=== PATIENT | male | born 1950 | race African-American/Black ===

== ENCOUNTER 2017-11-11 14:27 | Observation (INO) | payer MEDICARE ==
--- NOTE | 2017-11-11 16:22 | HP ---
PRIMARY CARE PHYSICIAN: Dr. Joshua Dean. REASON FOR ADMISSION: Transfer from [facility] for chest pain, syncopal episode. HISTORY OF PRESENT ILLNESS: A 67-year-old -Russian male who has underlying history of hypert ension who initially presented to [facility] for evaluation of palpitation, near syncope and chest pain. 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 At that poin t, he was having substernal discomfort. He describes as palpitations. He was feeling heaviness in s ubsternal area. He was feeling skipped beats. He was feeling that he was about to pass out, but he did not have any complete loss of consciousness. He was having intermittent this type of feeling and that is why he stopped driving and subsequently he parked his truck and with help, he was brought to [facility]. At [facility], patient was evaluated with routine blood test. His CBC, BMP, and cardiac enzymes were normal. His TSH was also normal. Electrocardiogram also sh owed some PVCs with normal pulse 60 and normal rhythm. Patient was given aspirin and subsequently he was transferred to our hospital for higher level of care. The patient denies any cardiac testing do ne. He denies any orthopnea, PND or leg swelling, but he does feels intermittent symptoms for last 2 -3 weeks. The patient is a smoker. Patient also drinks alcohol. The patient denies any lower extre mity edema or calf tenderness. He denies any relation of chest pain with food, respiration or activi ty. He denies any pleurisy. He denies any cough, fever, or chills. He denies any UTI symptoms. He denies any constipation, diarrhea, melena or hematochezia. REVIEW OF SYSTEMS: The following complete review of systems was negative, unless otherwise mentioned in the HPI or below: Constitutional: Weight loss or gain, ability to conduct usual activities. Skin: Rash, itching. Eyes: Double vision, pain. ENT/Mouth: Nose bleeding, neck stiffness, pain, tenderness. Cardiovascular: Palpitations, dyspnea on exertion, orthopnea. Respiratory: Shortness of breath, wheezing, cough, hemoptysis, fever or night sweats. Gastrointestinal: Poor appetite, abdominal pain, heartburn, nausea, vomiting, constipation, or diarr hea. Genitourinary: Urgency, frequency, dysuria, nocturia. Musculoskeletal: Pain, swelling. Neurologic/Psychiatric: Anxiety, depression. Allergy/Immunologic: Skin rash, bleeding tendency. Please see my HPI for pertinent positive and negative. All other review of systems reviewed and nega tive except as mentioned in the HPI. ALLERGIES: LATEX CLOTHES and SHELLFISH. CURRENT HOME MEDICATIONS: Lisinopril 20 mg p.o. daily, Coreg 25 mg p.o. twice daily. EMERGENCY ROOM COURSE: Patient is given aspirin at [facility]. PAST MEDICAL HISTORY: Hypertension, on antihypertensive medication. Patient reports that he has his tory of infective endocarditis and he was treated at [facility] with antibiotic. PAST SURGICAL HISTORY: Left knee arthroscopic surgery, right hand surgery for tendon repair. SOCIAL HISTORY: Patient working as a heavy truck technician. He smokes about 1 pack per day. He also drinks alcohol 5 beers every day basis. He denies any recreational drugs. FAMILY HISTORY: No strong family history of premature coronary artery disease, stroke or cancer. PAST PSYCHIATRIC HISTORY: Anxiety and depression, but not on any medication. PHYSICAL EXAMINATION: VITAL SIGNS: Currently, blood pressure 122/81, pulse 59, respiratory rate 16, temperature 98.9, satu ration 100% on room air, weight 77.1 kilograms. GENERAL: The patient is currently alert, awake, no obvious acute distress. HEAD: Normocephalic, atraumatic. EYES: Pupils round, reactive to light. Extraocular muscle intact. ENT: Oropharynx within normal limits. Moist mucous membranes. No oral lesion, no pharyngeal erythe ma, no exudate. NECK: Supple, no JVD, no thyromegaly, no carotid bruit, no jugular venous distention. LUNGS: Clear to auscultation without any rhonchi or rales. CARDIAC: S1, S2 regular. No murmur, no gallop, no rub. ABDOMEN: Soft, bowel sounds present, nontender, nondistended. No organomegaly, no mass, no suprapub ic tenderness. No epigastric tenderness. LUNGS: Clear to auscultation without any rhonchi or rales, no accessory muscles of respiration in us e. EXTREMITIES: Upper extremity passive movements of all joints are normal. Lower extremity passive mo vements of all joints are normal. SKIN: No skin rash. PSYCHIATRIC: Normal affect. NEUROLOGIC: Nonfocal examination. The patient moves all 4 limbs. Speech normal. HEMATOLOGICAL: No lymphadenopathy. IMAGING DATA AND SIGNIFICANT LABORATORY DATA: school lunch monitor showing normal sinus rhythm. EKG sh owing normal sinus rhythm, occasional PVC. CBC: WBC 5.4, hemoglobin 14.8, platelet 218. BMP; sodiu m 137, potassium 3.9, chloride 104, carbon dioxide 23, anion gap 14, BUN 11, creatinine 1.04, glucose 115, calcium 9.7, magnesium 2.1. LFT: AST 30, ALT 39, alkaline phosphatase 76, albumin 4.2, CK 182 , CK-MB 2.5, troponin I less than 0.010. TSH 1.03. Chest x-ray based on my review, no acute cardiopulmonary process. ASSESSMENT AND PLAN/IMPRESSION: 1. Chest pain, palpitation, near syncope. The patient's EKG is normal. The patient has risk factor s with hypertension, smoking, and age. Patient's cardiac enzyme is negative. TSH is normal. At thi s point, we will keep in the hospital for 24 hours and we will monitor on telemetry floor for any kin d of arrhythmia. The patient will need stress testing for diagnostic reason. We will keep him n.p.o . after midnight. We will check lipid profile for risk stratification. Meanwhile, we will continue with aspirin 325 mg p.o. daily. Healthy lifestyle measures discussed with the patient. We will also give him Pepcid 20 mg p.o. b.i.d. 2. We will do serial cardiac enzymes x2 to rule out acute coronary syndrome. As we are planning to do stress test tomorrow, that is why we will hold on his Coreg. We will continue with lisinopril 20 mg p.o. daily. 3. Hypertension. As mentioned above, we will continue with lisinopril 20 mg p.o. daily if blood pre ssure permits. We are going to hold Coreg because of stress testing tomorrow. 4. Tobacco abuse disorder. Smoking cessation counseling given. Healthy lifestyle measures discusse d with the patient. We will offer nicotine patch if needed. 5. Alcohol abuse. The patient is given counseling to avoid alcohol product. We will also check uri ne drug screen. 6. Anxiety and depression. Apparently, the patient is lot worried about his son who is in mcc at [email or web address]. The patient is given reassurance. 7. Deep venous thrombosis prophylaxis not needed because we are expecting discharge in 24 hours. 8. Gastrointestinal prophylaxis, Pepcid 20 mg p.o. b.i.d. 9. Code status: The patient is FULL CODE. Most likely, the patient will be discharged home tomorro w morning.
[2017-11-11] MEDS ORDERED: Ondansetron HCl/PF 4 MG/2 ML Vial IVP PRN ×2 (16:52→16:59)
[2017-11-11] MEDS ORDERED: HYDROcodone/Acetaminophen 5/325 mg Tablet PO PRN ×3 (16:52→16:59)
[2017-11-11] MEDS ORDERED: Acetaminophen 325 MG TAB PO PRN ×2 (16:52→16:59)
[2017-11-11] MEDS ORDERED: Ondansetron ODT 4 MG TAB SL PRN (16:52)
[2017-11-11] MEDS ORDERED: Senokot 8.6 MG TAB PO PRN (16:59)
[2017-11-11] MEDS ORDERED: Diabetic Tussin 200 MG/10 ML UDCUP PO PRN (16:59)
[2017-11-11] MEDS ORDERED: Milk Of Magnesia 30 ML UDCUP PO PRN (16:59)
[2017-11-11] MEDS ORDERED: Mag-Al 1200 mg/1200 mg/30 ML UDCUP PO PRN (16:59)
[2017-11-11] MEDS ORDERED: Nitroglycerin 0.4 MG TAB (25 Tab Bottle) SL PRN (16:59)
[2017-11-11] MEDS ORDERED: Loratadine 10 MG TAB PO PRN (16:59)
[2017-11-11] MEDS ORDERED: Eucerin (Mineral Oil/Petrolatum,White) 30 gm Jar TOP PRN (16:59)
[2017-11-11] MEDS ORDERED: Loperamide HCl 2 MG CAP PO PRN (16:59)
[2017-11-11] MEDS ORDERED: Sodium Chloride 0.65% Nasal 44 ML BOT EA NARE PRN (16:59)
[2017-11-11] MEDS ORDERED: cloNIDine 0.1 MG TAB PO PRN (16:59)
[2017-11-11] MEDS ORDERED: Chloraseptic Spray 180 ml Bottle PO PRN (16:59)
[2017-11-11] MEDS ORDERED: Zolpidem Tartrate 5 MG TAB PO PRN (16:59)
[2017-11-11] MEDS ORDERED: Artificial Tears 18 DROP/0.9 ML EA EYE PRN (16:59)
[2017-11-11] MEDS ORDERED: Ondansetron ODT 4 MG TAB PO PRN (16:59)
[2017-11-11 17:53] VITALS: BMI 22.8
[2017-11-11 19:28] LABS: CKMB 2.5 ng/mL (0-6.6); Troponin I Less than 0.010 ng/mL (< 0.028)
[2017-11-11] MEDS: Famotidine 20 MG TAB PO SCH (19:48)
[2017-11-11 21:18] LABS: CKMB 2.4 ng/mL (0-6.6); Troponin I Less than 0.010 ng/mL (< 0.028)
[2017-11-12 05:33] LABS: #Eosinphils 0.2 thou/uL (0.0-0.7); #Lymphocytes 1.6 thou/uL (1.20-3.40); #Monocytes 0.5 thou/uL (0.11-0.59); #Neutrophils 2.3 thou/uL (1.40-6.50); %Eosinophils 4.3 % (0.0-10.0); %Lymphocytes 35.2 % (21.0-51.0); %Monocytes 10.2 % (0.0-10.0); %Neutrophils 49.3 % (42.0-75.0); Hemoglobin 14.3 g/dL (14.0-18.0); Mean Corpuscular HGB CONC 33.9 g/dL (32.0-36.0); Mean Corpuscular Hemoglobin 29.9 pg (27.0-31.0); Mean Corpuscular Volume 88.4 fL (78.0-98.0); Mean Platelet Volume 6.9 fL (7.4-10.4); Platelet Count 193 thou/uL (130-400); RBC Distribution Width 12.7 % (11.5-14.5); Red Blood Cell (RBC) Count 4.79 mill/uL (4.70-6.10); White Blood Cell (WBC) Count 4.6 thou/uL (4.8-10.8)
[2017-11-12 05:50] LABS: Anion Gap 12 mmol/L (10-20); BUN (Urea Nitrogen) 12 mg/dL (8.4-25.7); Calc. Creatinine Clearance 83 mL/min (70-130); Calcium 9.3 mg/dL (7.8-10.44); Carbon Dioxide 26 mmol/L (23-31); Cardiac Risk 2.7 (Less than 4.5); Chloride 102 mmol/L (98-107); Cholesterol 265 mg/dl (< 200 Desired); Estimated GFR-MDRD Greater than 90; Glucose 81 mg/dL (80-115); HDL Cholesterol 99 mg/dL (>60 Neg Risk); LDL Cholesterol, Calculated 146 mg/dL; Potassium 4.3 mmol/L (3.5-5.1); Sodium 136 mmol/L (136-145); Triglycerides 101 mg/dL (Less than 150)
[2017-11-12 06:21] LABS: Amphetamine Not Detected (NotDetected); Barbiturates Screen Not Detected (NotDetected); Benzodiazepine Screen Not Detected (NotDetected); Cocaine Metabolite Screen Not Detected (NotDetected); Medtox Reader # READER 4; Methadone Not Detected (NotDetected); Methamphetamine Not Detected (NotDetected); Opiate Screen Not Detected (NotDetected); Oxycodone Screen Not Detected (NotDetected); Phencyclidine (PCP) Not Detected (NotDetected); THC/Cannabinoid Screen Not Detected (NotDetected); Tricyclic Screen Not Detected (NotDetected)
[2017-11-12 06:22] LABS: Medtox Control Line Valid? VALID (VALID)
[2017-11-12] MEDS: Famotidine 20 MG TAB PO SCH (08:43)
[2017-11-12] MEDS ORDERED: Lisinopril 20 MG TAB PO SCH (09:00)
[2017-11-12] MEDS ORDERED: Aspirin 325 MG TAB PO SCH (09:00)
--- NOTE | 2017-11-12 10:14 | DIS ---
DATE OF ADMISSION: 11/11/2017 DATE OF DISCHARGE: 11/12/2017 PRIMARY CARE PHYSICIAN: Dr. Charles Dean. DISCHARGE DISPOSITION: Home. PRIMARY DISCHARGE DIAGNOSES: Chest pain, ruled out acute coronary syndrome, suspected from gastroesophageal reflux disease. SECONDARY DISCHARGE DIAGNOSES: Tobacco abuse disorder, hypertension, dyslipidemia, alcohol abuse, anxiety and depression. PRIMARY PROCEDURES AND OPERATIONS: None. RADIOLOGICAL INVESTIGATION: Patient had chest x-ray at [facility] which was normal. Stress test is ordered and result is pending. SIGNIFICANT LABORATORY DATA: WBC 4.6, hemoglobin 14.3, platelet 193. Sodium 136, creatinine 0.91. Cardiac enzymes negative x3. LDL 146. Urine drug screen negative. DISCHARGE MEDICATIONS: Coreg 25 mg p.o. b.i.d., lisinopril 20 mg p.o. daily, Ecotrin 81 mg p.o. daily, Pepcid 20 mg p.o. b.i.d., lovastatin 10 mg p.o. at bedtime. CONTRAINDICATIONS: None. CODE STATUS: FULL CODE. INPATIENT CONSULTANTS: None. ALLERGIES: LATEX, SHELLFISH. DISCHARGE PLAN: Post hospital, the patient is instructed to follow up with primary care physician in 1 week. HOSPITAL COURSE: The patient is a 67-year-old male who was admitted by me yesterday. Please see my HPI for further details. He presented to [facility] with a complaint of substernal chest discomfort, palpitation, dizziness. His description was pretty much atypical. He has some risk factors for coronary artery disease and that is why he was transferred to our hospital. We kept him in hospital for observation and we did serial cardiac enzymes and that were negative. His telemetry remained unremarkable. He was keep complaining of skipped beat, but we did not see any abnormality on monitor. His chest x-ray was normal. We did stress test during this admission and result is pending by the time of dictation. Patient will continue all his previous medication upon discharge. If stress test is negative, then we will consider discharging him home. PHYSICAL EXAMINATION: The patient is seen and examined at bedside today. VITAL SIGNS: Currently, temperature 98.2, pulse 56, respiratory rate 14, saturation 96% on room air, blood pressure 134/67, weight 159 pounds. GENERAL: The patient is currently alert, awake, no obvious acute distress. HEAD: Normocephalic, atraumatic. EYES: Pupils round, reactive to light. Extraocular muscle intact. ENT: Oropharynx within normal limits. Moist mucous membranes. NECK: Supple, no JVD, no thyromegaly, no carotid bruit. LUNGS: Clear to auscultation. CARDIAC: S1, S2 regular. No murmur. ABDOMEN: Soft and benign. EXTREMITIES: No edema. NEUROLOGIC: Nonfocal examination. FOLLOWUP: This patient should follow up with primary care physician to adjust his blood pressure medication. stress test is normal MTDD
[2017-11-12 15:30] VITALS: BP 151/65; TEMP 97.8
--- NOTE | 2017-11-12 16:49 | NM ---
NUCLEAR MEDICINE CARDIAC MYOCARDIAL PERFUSION SPECT EJECTION FRACTION STUDY WALL MOTION CINE: DATE: 11-12-17 HISTORY: 67-year-old male with chest pain. TECHNIQUE: Number of days: 1 Rest study: Tc99m sestamibi (Cardiolite) dose: 10.4 mCi Exercise stress: treadmill. Stress study: Tc99m sestamibi (Cardiolite) dose: 27.5 mCi FINDINGS: CARDIAC (MYOCARDIAL PERFUSION) SPECT Distribution of sestamibi is homogeneous throughout the left ventricle, with no fixed or reversible m yocardial perfusion defects. EJECTION FRACTION STUDY EF = 77% WALL MOTION CINE The left ventricular wall motion is normal. There is normal systolic wall thickening. IMPRESSION: Normal. alexandru POS: KENAN
--- NOTE | 2017-11-18 10:49 | STRESS ---
Acquisition Time: 2017-11-12 13:19:45 Total Exercise Time: 00:05:59 Test Indications: CHEST PAIN Medications: Protocol: AUNG Max HR: 137 BPM 88% of Pred: 155 BPM Max BP: 166/088 mmHG Max Work Load: 7.0 METS RESTING ECG: NORMAL SINUS RHYTHM AT 63 BPM SYMPTOMS: DYSPNEA ON EXERTION NORMAL BP RESPONSE ECTOPY: NONE ECG STRESS: NO SIGNIFICANT CHANGES INTERPRETATION: NEGATIVE ECG/AWAIT NUCLEAR IMAGES FOR DEFINITIVE DIAGNOSIS Confirmed by JERSON ROSA ([id number]), development editor MEGHAN PEMBERTON ([id number]) on 11/18/2017 10:48:32 AM Referred By: MD Renee MOODY Confirmed By:JERSON ROSA
== END 2017-11-12 16:18 | disposition home or self-care (01) ==
LOC: ERS 14:27 → 2SW 16:30
PROVIDERS: ADMIT Internal Medicine; ATTEND Internal Medicine
DX: R07.9 Chest pain, unspecified (principal); R00.2 Palpitations; R55 Syncope and collapse; I10 Essential (primary) hypertension; F17.200 Nicotine dependence, unspecified, uncomplicated; F10.10 Alcohol abuse, uncomplicated; F41.8 Other specified anxiety disorders; E78.5 Hyperlipidemia, unspecified; Z91.040 Latex allergy status; Z91.013 Allergy to seafood; Z79.899 Other long term (current) drug therapy
CPT/HCPCS: 78452; 80048; 80061; 80306; 82553; 84484; 85025; 93017; 99285; A9500; G0378 ×2; 36415